=== PATIENT | male | born 1995 | race Caucasian/White ===

== ENCOUNTER 2019-06-03 03:14 | Emergency (ER) | payer SELFPAY ==
[~2019-06-03] VITALS: Ht 170.2 cm; Wt 91.0 kg
[2019-06-03] MEDS ORDERED: LEVETIRACETAM 500MG PREMIX 100 ML IV ONE (03:45)
[2019-06-03 04:30] VITALS: BP 115/70
== END 2019-06-03 04:53 | disposition home or self-care (01) ==
LOC: ER 03:14
DX: G40.909 Epilepsy, unspecified, not intractable, without status epilepticus (principal); R03.0 Elevated blood-pressure reading, without diagnosis of hypertension; Z91.19 Patient's noncompliance with other medical treatment and regimen
CPT/HCPCS: 96365; 99283; J1953